=== PATIENT | female | born 1960 | race African-American/Black ===

== ENCOUNTER 2019-06-23 11:11 | Inpatient (IN) ==
[2019-06-23] MEDS ORDERED: PROVENTIL NEB TX 0.083% 2.5MG/ 3ML NEB SCH (13:00)
[2019-06-23] MEDS ORDERED: VENTOLIN or PROAIR HFA IN SCH (13:15)
[2019-06-23] MEDS ORDERED: NS 1/2 1000 ML IV 1,000 ML IV ONE (13:43)
[2019-06-23 13:46] LABS: ABG ALLEN TEST POS; ABG BASE EXCESS 3.2 mmol/L (-2.0-2.0); ABG HCO3 26.9 mmol/L (22-26)
[2019-06-23 13:59] LABS: BASOPHILS % (AUTO) 0.4 % (0.2-1.0); EOSINOPHILS % (AUTO) 0.1 % (0.9-2.9); LYMPHOCYTES % (AUTO) 33.4 % (21.0-51.0); MEAN CORPUSCULAR HEMOGLOBIN 28.2 pg (27.0-34.0); MEAN CORPUSCULAR HGB CONC 33.3 g/dL (33.0-35.0); MEAN CORPUSCULAR VOLUME 84.8 fL (80.0-100.0); MONOCYTES # (AUTO) 0.2 x10^3/uL (0.3-0.8); MONOCYTES % (AUTO) 5.9 % (0.0-13.0); NEUTROPHILS # (AUTO) 1.8 x10^3/uL (2.2-4.8); NEUTROPHILS % (AUTO) 60.2 % (42.0-75.0); PLATELET COUNT 147 X10^3/uL (150.0-450.0); RED BLOOD COUNT 4.96 X10^6/uL (3.5-5.4); RED CELL DISTRIBUTION WIDTH 13.6 % (11.6-16.5); WHITE BLOOD COUNT 2.9 X10^3/uL (3.6-10.0)
[2019-06-23 14:08] LABS: ALANINE AMINOTRANSFERASE 48 Units/L (12-78); ALBUMIN 3.5 g/dL (3.4-5.0); ALKALINE PHOSPHATASE 109 Units/L (46-116); ASPARTATE AMINO TRANSFERASE 39 Units/L (15-37); BLOOD UREA NITROGEN 10 mg/dL (7-18); CALCIUM 8.6 mg/dL (8.5-10.1); CARBON DIOXIDE 27.4 mmol/L (21-32); CHLORIDE 104 mmol/L (98-107); COR NA(FOR HYPERGLY) 141 mmol/L (136-145); CREATININE 0.84 mg/dL (0.55-1.02); SODIUM 140 mmol/L (136-145); TOTAL PROTEIN 8.1 g/dL (6.4-8.2); eGFR NON BLACK RACES > 60 (>60)
[2019-06-23] MEDS: NS 1/2 1000 ML IV 1,000 ML IV SCH (14:13)
[2019-06-23 14:26] VITALS: BMI 31.6
[2019-06-23] MEDS ORDERED: PREVNAR 13 IM ONE (14:26)
[2019-06-23] MEDS ORDERED: POTASSIUM CHLORIDE LIQ 20 MEQ UDC PO PRN (14:37)
[2019-06-23] MEDS ORDERED: MICRO K EXTEN CAP 10 MEQ PO PRN (14:37)
[2019-06-23] MEDS ORDERED: KLOR-CON PO PRN (14:37)
[2019-06-23] MEDS ORDERED: POTASSIUM CHL 40 MEQ/NS 0.45% 500 ML IV PRN (14:37)
[2019-06-23] MEDS ORDERED: K-RIDER 10 MEQ/NS 100 ML 10 MEQ/100 ML BAG IV PRN (14:37)
[2019-06-23] MEDS ORDERED: MAGNESIUM SULFATE 1 GRAM/100 mL PREMIX 1 GM/100 ML BAG IV PRN (14:37)
[2019-06-23] MEDS ORDERED: POTASSIUM CHL 60 MEQ/NS 0.45% 500 ML IV PRN (14:37)
[2019-06-23] MEDS ORDERED: K-DUR TAB 20 MEQ PO ONE (14:49)
[2019-06-23] MEDS: K-DUR TAB 20 MEQ PO PRN (14:51)
[2019-06-23] MEDS: ROBITUSSIN DM PO SCH ×3 (14:51→21:00)
[2019-06-23] MEDS: PLAQUENIL PO SCH ×2 (14:52→21:00)
[2019-06-23] MEDS: TUSSIONEX PENNKINETIC SUSP PO SCH (14:52)
[2019-06-23] MEDS: ZITHROMAX INJ 500 MG VIAL 500 MG in NS 250 ML IV 250 ML IV SCH (14:52)
--- NOTE | 2019-06-23 16:00 | RAD ---
CHEST, 1 VIEWHistory: SOB COUGHING FEVERComparison: 04/16/2017Findings: Cardiac silhouette is normal in size. No acute alveolar infiltrate or significant effusion is identified. No pneumothorax.Impression: No acute cardiopulmonary abnormality.Electronically signed by: KATLYN FONSECA (Jun 23, 2019 15:58:49)
[2019-06-23] MEDS: PEPCID TAB 20 MG PO SCH (21:00)
[2019-06-23 23:05] LABS: MYCOPLASMA PNEUMONIAE IGM AB NEGATIVE (NEGATIVE)
[2019-06-24] MEDS: TUSSIONEX PENNKINETIC SUSP PO SCH ×2 (02:20→13:59)
[2019-06-24] MEDS: PLAQUENIL PO SCH ×3 (05:40→22:06)
[2019-06-24 06:03] LABS: BASOPHILS % (AUTO) 0.3 % (0.2-1.0); EOSINOPHILS % (AUTO) 0.2 % (0.9-2.9); HEMATOCRIT 38.5 % (36.0-47.0); HEMOGLOBIN 12.6 g/dL (12.0-16.0); LYMPHOCYTES # (AUTO) 1.2 X10^3/uL (1.3-2.9); LYMPHOCYTES % (AUTO) 49.2 % (21.0-51.0); MEAN CORPUSCULAR HEMOGLOBIN 28.1 pg (27.0-34.0); MEAN CORPUSCULAR HGB CONC 32.7 g/dL (33.0-35.0); MEAN CORPUSCULAR VOLUME 85.8 fL (80.0-100.0); MEAN PLATELET VOLUME 7.6 fL (7.4-11.0); MONOCYTES # (AUTO) 0.3 x10^3/uL (0.3-0.8); MONOCYTES % (AUTO) 12.1 % (0.0-13.0); NEUTROPHILS # (AUTO) 0.9 x10^3/uL (2.2-4.8); NEUTROPHILS % (AUTO) 38.2 % (42.0-75.0); PLATELET COUNT 138 X10^3/uL (150.0-450.0); RED BLOOD COUNT 4.49 X10^6/uL (3.5-5.4); RED CELL DISTRIBUTION WIDTH 13.7 % (11.6-16.5); WHITE BLOOD COUNT 2.4 X10^3/uL (3.6-10.0)
[2019-06-24 06:15] LABS: ALANINE AMINOTRANSFERASE 42 Units/L (12-78); ALKALINE PHOSPHATASE 85 Units/L (46-116); ASPARTATE AMINO TRANSFERASE 36 Units/L (15-37); BLOOD UREA NITROGEN 9 mg/dL (7-18); CALCIUM 7.9 mg/dL (8.5-10.1); CARBON DIOXIDE 27.8 mmol/L (21-32); CHLORIDE 106 mmol/L (98-107); COR CA(FOR HYPOALB) 8.7 mg/dL (8.5-10.1); CREATININE 0.78 mg/dL (0.55-1.02); SODIUM 140 mmol/L (136-145); TOTAL PROTEIN 6.9 g/dL (6.4-8.2); eGFR NON BLACK RACES > 60 (>60)
[2019-06-24] MEDS ORDERED: NS 1/2 1000 ML IV 1,000 ML IV ONE ×2 (06:30→22:33)
[2019-06-24 06:33] LABS: PLATELET MORPHOLOGY COMMENT NORMAL (NORMAL)
[2019-06-24] MEDS: NS 1/2 1000 ML IV 1,000 ML IV SCH ×3 (06:34→23:43)
[2019-06-24] MEDS: ROBITUSSIN DM PO SCH ×4 (09:13→21:15)
[2019-06-24] MEDS: ZITHROMAX INJ 500 MG VIAL 500 MG in NS 250 ML IV 250 ML IV SCH (09:13)
[2019-06-24] MEDS: ELIQUIS PO SCH (09:13)
--- NOTE | 2019-06-24 09:51 | PCM.PROG ---
Progress Note Progress Note for Day of Date of Exam: 06/24/19 Subjective Subjective: Pt is a 59 yo f pmhx Pulmonary embolus, admitted for pneumonia(failed outpt treatment), malaise/fatigue, persistent fever. Due to current COVID-19 pandemic, pt was started on pneumonia protocol, w/ Plaquenil and Zithromax. Myco/Flu negative, BloodCx pending. Today Wbc 2.4, Plt 138, Hgb 12.6, CRP 30. CXR negative. She is feeling a little better today, still having some fatigue. She is on 2L nc, will start to wean down today. Past Medical Family Social History Past Med/Fam/Surg Hx: No changes since H&P Allergies: Allergies morphine Allergy (Intermediate, Verified 06/23/19 12:22) prednisone Adverse Reaction (Verified 06/23/19 12:22) Review of Systems ROS: No change since H&P Vital Signs and I&O's Vital Signs: Temperature 98.6 F Pulse Rate 51 Respiratory Rate 20 Blood Pressure 102/55 O2 Sat by Pulse Oximetry 100 Intake and Output: Intake & Output 06/21/19 06/22/19 06/23/19 06/24/19 23:59 23:59 23:59 23:59 Intake Total 1281 / 1281 570 / 570 Balance 1281 / 1281 570 / 570 Physical Exam Oriented: Normal Eyes: Normal Ear: Normal Nose: Normal Respiratory: Normal Cardiovascular: Normal : Normal Auscultation: Bowel Sounds: Normal Tenderness: Normal Skin: Normal Musculoskeletal: Normal Psychiatric: Normal Speech Pattern: Clear and Appropriate Laboratory and Diagnostics Result Diagrams: 06/24/19 05:01 06/24/19 05:01 Labs: Laboratory WBC 2.4 X10^3/uL (3.6-10.0) L 06/24/19 05:01 RBC 4.49 X10^6/uL (3.5-5.4) 06/24/19 05:01 Hgb 12.6 g/dL (12.0-16.0) 06/24/19 05:01 Hct 38.5 % (36.0-47.0) 06/24/19 05:01 MCV 85.8 fL (80.0-100.0) 06/24/19 05:01 MCH 28.1 pg (27.0-34.0) 06/24/19 05:01 MCHC 32.7 g/dL (33.0-35.0) L 06/24/19 05:01 RDW 13.7 % (11.6-16.5) 06/24/19 05:01 Plt Count 138 X10^3/uL (150.0-450.0) L 06/24/19 05:01 Plt Count Comment Adequate (ADEQUATE) 06/24/19 05:01 MPV 7.6 fL (7.4-11.0) 06/24/19 05:01 Neut % (Auto) 38.2 % (42.0-75.0) L 06/24/19 05:01 Lymph % (Auto) 49.2 % (21.0-51.0) 06/24/19 05:01 [place] % (Auto) 12.1 % (0.0-13.0) 06/24/19 05:01 Eos % (Auto) 0.2 % (0.9-2.9) L 06/24/19 05:01 Baso % (Auto) 0.3 % (0.2-1.0) 06/24/19 05:01 Neut # (Auto) 0.9 x10^3/uL (2.2-4.8) L 06/24/19 05:01 Lymph # (Auto) 1.2 X10^3/uL (1.3-2.9) L 06/24/19 05:01 [place] # (Auto) 0.3 x10^3/uL (0.3-0.8) 06/24/19 05:01 Eos # (Auto) 0.0 x10^3/uL (0.0-0.2) 06/24/19 05:01 Baso # (Auto) 0.0 X10^3/uL (0.0-0.1) 06/24/19 05:01 Absolute Nucleated RBC 0.0 /100WBC 06/24/19 05:01 Total Counted 100 06/24/19 05:01 Neutrophils % (Manual) 36 % (39-76) L 06/24/19 05:01 Lymphocytes % (Manual) 50 % (13-43) H 06/24/19 05:01 Monocytes % (Manual) 14 % (4-9) H 06/24/19 05:01 Plt Morphology Comment Normal (NORMAL) 06/24/19 05:01 RBC Morphology Normal (NORMAL) 06/24/19 05:01 Sample Site Lrad 06/23/19 13:37 ABG pH 7.470 (7.35-7.45) H 06/23/19 13:37 ABG pCO2 37.0 mmHg (35.0-45.0) 06/23/19 13:37 ABG pO2 80.0 mmHg (80.0-100.0) 06/23/19 13:37 ABG HCO3 26.9 mmol/L (22-26) H 06/23/19 13:37 ABG O2 Saturation 96.0 % (90-100) 06/23/19 13:37 ABG Base Excess 3.2 mmol/L (-2.0-2.0) H 06/23/19 13:37 Shayne Test Pos 06/23/19 13:37 A-a Gradient 23.0 mmHg 06/23/19 13:37 FiO2 21.0 06/23/19 13:37 Blood Gas Comments Pt johan well elj cdn 06/23/19 13:37 Sodium 140 mmol/L (136-145) 06/24/19 05:01 Corrected Sodium TNP 06/24/19 05:01 Potassium 3.9 mmol/L (3.5-5.1) 06/24/19 05:01 Chloride 106 mmol/L (98-107) 06/24/19 05:01 Carbon Dioxide 27.8 mmol/L (21-32) 06/24/19 05:01 BUN 9 mg/dL (7-18) 06/24/19 05:01 Creatinine 0.78 mg/dL (0.55-1.02) 06/24/19 05:01 Est GFR (MDRD) Af Amer > 60 (>60) 06/24/19 05:01 Est GFR (MDRD) Non-Af > 60 (>60) 06/24/19 05:01 Glucose 102 mg/dL (65-99) H 06/24/19 05:01 Calcium 7.9 mg/dL (8.5-10.1) L 06/24/19 05:01 Corrected Calcium 8.7 mg/dL (8.5-10.1) 06/24/19 05:01 Magnesium 1.9 mg/dL (1.7-2.9) 06/23/19 13:30 Total Bilirubin 0.50 mg/dL (0.2-1.0) 06/24/19 05:01 AST 36 Units/L (15-37) 06/24/19 05:01 ALT 42 Units/L (12-78) 06/24/19 05:01 Alkaline Phosphatase 85 Units/L (46-116) 06/24/19 05:01 C-Reactive Protein 30.60 mg/L (0-3.0) H 06/24/19 05:01 Total Protein 6.9 g/dL (6.4-8.2) 06/24/19 05:01 Albumin 3.0 g/dL (3.4-5.0) L 06/24/19 05:01 Globulin 3.9 g/dL (2.5-4.5) 06/24/19 05:01 Albumin/Globulin Ratio 0.8 Ratio (1.1-2.1) L 06/24/19 05:01 Influenza Type A (PCR) Negative (NEGATIVE) 06/23/19 23:30 Influenza Type B (PCR) Negative (NEGATIVE) 06/23/19 23:30 Mycoplasma pneumon IgG Negative (NEGATIVE) 06/23/19 17:56 Plan (1) Pneumonia: Status: Acute Plan: Pneumonia protocol (2) Fever: Status: Acute (3) Pulmonary embolus: Status: Acute Plan: Continue Eliquis (4) Cough: Status: Acute
[2019-06-24] MEDS: PEPCID TAB 20 MG PO SCH (21:15)
[2019-06-24] MEDS ORDERED: TYLENOL 325 MG TAB PO PRN (23:04)
[2019-06-25] MEDS: TUSSIONEX PENNKINETIC SUSP PO SCH ×2 (02:20→13:48)
[2019-06-25] MEDS: PLAQUENIL PO SCH ×3 (06:10→21:30)
[2019-06-25 06:31] LABS: BASOPHILS % (AUTO) 0.9 % (0.2-1.0); EOSINOPHILS % (AUTO) 0.3 % (0.9-2.9); HEMATOCRIT 36.4 % (36.0-47.0); HEMOGLOBIN 12.1 g/dL (12.0-16.0); LYMPHOCYTES # (AUTO) 1.4 X10^3/uL (1.3-2.9); LYMPHOCYTES % (AUTO) 48.9 % (21.0-51.0); MEAN CORPUSCULAR HEMOGLOBIN 28.5 pg (27.0-34.0); MEAN CORPUSCULAR HGB CONC 33.2 g/dL (33.0-35.0); MEAN CORPUSCULAR VOLUME 85.7 fL (80.0-100.0); MEAN PLATELET VOLUME 8.6 fL (7.4-11.0); MONOCYTES # (AUTO) 0.2 x10^3/uL (0.3-0.8); NEUTROPHILS # (AUTO) 1.2 x10^3/uL (2.2-4.8); NEUTROPHILS % (AUTO) 41.9 % (42.0-75.0); PLATELET COUNT 146 X10^3/uL (150.0-450.0); RED BLOOD COUNT 4.25 X10^6/uL (3.5-5.4); RED CELL DISTRIBUTION WIDTH 13.7 % (11.6-16.5); WHITE BLOOD COUNT 2.9 X10^3/uL (3.6-10.0)
[2019-06-25 06:45] LABS: ALANINE AMINOTRANSFERASE 42 Units/L (12-78); ALKALINE PHOSPHATASE 87 Units/L (46-116); ASPARTATE AMINO TRANSFERASE 30 Units/L (15-37); BLOOD UREA NITROGEN 9 mg/dL (7-18); CALCIUM 8.1 mg/dL (8.5-10.1); CARBON DIOXIDE 27.7 mmol/L (21-32); CHLORIDE 105 mmol/L (98-107); COR CA(FOR HYPOALB) 8.9 mg/dL (8.5-10.1); CREATININE 0.75 mg/dL (0.55-1.02); SODIUM 139 mmol/L (136-145); TOTAL PROTEIN 6.8 g/dL (6.4-8.2); eGFR NON BLACK RACES > 60 (>60)
[2019-06-25] MEDS: NS 1/2 1000 ML IV 1,000 ML IV SCH ×3 (06:55→18:02)
[2019-06-25] MEDS: ZITHROMAX INJ 500 MG VIAL 500 MG in NS 250 ML IV 250 ML IV SCH (08:17)
[2019-06-25] MEDS: ELIQUIS PO SCH ×2 (08:18→21:30)
[2019-06-25] MEDS: ROBITUSSIN DM PO SCH ×4 (08:19→21:30)
[2019-06-25] MEDS: K-DUR TAB 20 MEQ PO PRN (08:20)
[2019-06-25] MEDS ORDERED: BENADRYL CAP/TAB 25 MG PO PRN (09:53)
[2019-06-25] MEDS ORDERED: COLACE CAP 100 MG PO PRN (11:10)
--- NOTE | 2019-06-25 11:29 | PCM.PROG ---
Progress Note Progress Note for Day of Date of Exam: 06/25/19 Subjective Subjective: Pt is a 59 yo f pmhx Pulmonary embolus, admitted for pneumonia(failed outpt treatment), malaise/fatigue, persistent fever. Due to current COVID-19 pandemic, pt was started on pneumonia protocol, w/ Plaquenil and Zithromax. Myco/Flu negative, BloodCx NGTD. COVID-19 pending. She reports feeling the same, w/ fatigue, and had spiked a fever of 101F last night. Labs Wbc 2.9, Plt 146, Hgb 12.1. She is on 2L nc. Will add Colace for constipation. Continue to monitor and follow up labs in the morning. Past Medical Family Social History Past Med/Fam/Surg Hx: No changes since H&P Allergies: Allergies morphine Allergy (Intermediate, Verified 06/23/19 12:22) prednisone Adverse Reaction (Verified 06/23/19 12:22) Review of Systems ROS: No change since H&P Vital Signs and I&O's Vital Signs: Temperature 98.0 F Pulse Rate 59 Respiratory Rate 19 Blood Pressure 111/58 O2 Sat by Pulse Oximetry 98 Intake and Output: Intake & Output 06/22/19 06/23/19 06/24/19 06/25/19 23:59 23:59 23:59 23:59 Intake Total 1281 / 1281 1211 / 1211 606 / 606 Balance 1281 / 1281 1211 / 1211 606 / 606 Physical Exam Oriented: Normal Eyes: Normal Ear: Normal Nose: Normal Respiratory: Normal Cardiovascular: Normal : Normal Auscultation: Bowel Sounds: Normal Tenderness: Normal Skin: Normal Musculoskeletal: Normal Psychiatric: Normal Speech Pattern: Clear and Appropriate Laboratory and Diagnostics Result Diagrams: 06/25/19 05:10 06/25/19 05:10 Labs: 06/23/19 13:35 Blood Blood Culture - Final 06/23/19 13:30 Blood Blood Culture - Preliminary Laboratory WBC 2.9 X10^3/uL (3.6-10.0) L 06/25/19 05:10 RBC 4.25 X10^6/uL (3.5-5.4) 06/25/19 05:10 Hgb 12.1 g/dL (12.0-16.0) 06/25/19 05:10 Hct 36.4 % (36.0-47.0) 06/25/19 05:10 MCV 85.7 fL (80.0-100.0) 06/25/19 05:10 MCH 28.5 pg (27.0-34.0) 06/25/19 05:10 MCHC 33.2 g/dL (33.0-35.0) 06/25/19 05:10 RDW 13.7 % (11.6-16.5) 06/25/19 05:10 Plt Count 146 X10^3/uL (150.0-450.0) L 06/25/19 05:10 Plt Count Comment Adequate (ADEQUATE) 06/24/19 05:01 MPV 8.6 fL (7.4-11.0) 06/25/19 05:10 Neut % (Auto) 41.9 % (42.0-75.0) L 06/25/19 05:10 Lymph % (Auto) 48.9 % (21.0-51.0) 06/25/19 05:10 [place] % (Auto) 8.0 % (0.0-13.0) 06/25/19 05:10 Eos % (Auto) 0.3 % (0.9-2.9) L 06/25/19 05:10 Baso % (Auto) 0.9 % (0.2-1.0) 06/25/19 05:10 Neut # (Auto) 1.2 x10^3/uL (2.2-4.8) L 06/25/19 05:10 Lymph # (Auto) 1.4 X10^3/uL (1.3-2.9) 06/25/19 05:10 [place] # (Auto) 0.2 x10^3/uL (0.3-0.8) L 06/25/19 05:10 Eos # (Auto) 0.0 x10^3/uL (0.0-0.2) 06/25/19 05:10 Baso # (Auto) 0.0 X10^3/uL (0.0-0.1) 06/25/19 05:10 Absolute Nucleated RBC 0.1 /100WBC 06/25/19 05:10 Total Counted 100 06/24/19 05:01 Neutrophils % (Manual) 36 % (39-76) L 06/24/19 05:01 Lymphocytes % (Manual) 50 % (13-43) H 06/24/19 05:01 Monocytes % (Manual) 14 % (4-9) H 06/24/19 05:01 Plt Morphology Comment Normal (NORMAL) 06/24/19 05:01 RBC Morphology Normal (NORMAL) 06/24/19 05:01 Sample Site Lrad 06/23/19 13:37 ABG pH 7.470 (7.35-7.45) H 06/23/19 13:37 ABG pCO2 37.0 mmHg (35.0-45.0) 06/23/19 13:37 ABG pO2 80.0 mmHg (80.0-100.0) 06/23/19 13:37 ABG HCO3 26.9 mmol/L (22-26) H 06/23/19 13:37 ABG O2 Saturation 96.0 % (90-100) 06/23/19 13:37 ABG Base Excess 3.2 mmol/L (-2.0-2.0) H 06/23/19 13:37 Shayne Test Pos 06/23/19 13:37 A-a Gradient 23.0 mmHg 06/23/19 13:37 FiO2 21.0 06/23/19 13:37 Blood Gas Comments Pt johan well elj cdn 06/23/19 13:37 Sodium 139 mmol/L (136-145) 06/25/19 05:10 Corrected Sodium TNP 06/25/19 05:10 Potassium 3.6 mmol/L (3.5-5.1) 06/25/19 05:10 Chloride 105 mmol/L (98-107) 06/25/19 05:10 Carbon Dioxide 27.7 mmol/L (21-32) 06/25/19 05:10 BUN 9 mg/dL (7-18) 06/25/19 05:10 Creatinine 0.75 mg/dL (0.55-1.02) 06/25/19 05:10 Est GFR (MDRD) Af Amer > 60 (>60) 06/25/19 05:10 Est GFR (MDRD) Non-Af > 60 (>60) 06/25/19 05:10 Glucose 104 mg/dL (65-99) H 06/25/19 05:10 Calcium 8.1 mg/dL (8.5-10.1) L 06/25/19 05:10 Corrected Calcium 8.9 mg/dL (8.5-10.1) 06/25/19 05:10 Magnesium 2.1 mg/dL (1.7-2.9) 06/25/19 05:10 Total Bilirubin 0.60 mg/dL (0.2-1.0) 06/25/19 05:10 AST 30 Units/L (15-37) 06/25/19 05:10 ALT 42 Units/L (12-78) 06/25/19 05:10 Alkaline Phosphatase 87 Units/L (46-116) 06/25/19 05:10 C-Reactive Protein 30.60 mg/L (0-3.0) H 06/24/19 05:01 Total Protein 6.8 g/dL (6.4-8.2) 06/25/19 05:10 Albumin 3.0 g/dL (3.4-5.0) L 06/25/19 05:10 Globulin 3.8 g/dL (2.5-4.5) 06/25/19 05:10 Albumin/Globulin Ratio 0.8 Ratio (1.1-2.1) L 06/25/19 05:10 Influenza Type A (PCR) Negative (NEGATIVE) 06/23/19 23:30 Influenza Type B (PCR) Negative (NEGATIVE) 06/23/19 23:30 Mycoplasma pneumon IgG Negative (NEGATIVE) 06/23/19 17:56 Plan (1) Pneumonia: Status: Acute Plan: Pneumonia protocol On 2L nc (2) Fever: Status: Acute Plan: Spiked 101F yesterday (3) Pulmonary embolus: Status: Acute Plan: Continue Eliquis (4) Cough: Status: Acute
[2019-06-25] MEDS ORDERED: NS 1/2 1000 ML IV 1,000 ML IV ONE (13:21)
[2019-06-25] MEDS: COLACE CAP 100 MG PO SCH ×2 (13:48→20:30)
[2019-06-25] MEDS: PEPCID TAB 20 MG PO SCH (21:30)
[2019-06-26] MEDS ORDERED: NS 1/2 1000 ML IV 1,000 ML IV ONE ×2 (02:46→19:59)
[2019-06-26 06:09] LABS: BASOPHILS % (AUTO) 0.4 % (0.2-1.0); EOSINOPHILS % (AUTO) 0.8 % (0.9-2.9); HEMATOCRIT 37.1 % (36.0-47.0); HEMOGLOBIN 12.5 g/dL (12.0-16.0); LYMPHOCYTES # (AUTO) 1.3 X10^3/uL (1.3-2.9); LYMPHOCYTES % (AUTO) 45.2 % (21.0-51.0); MEAN CORPUSCULAR HEMOGLOBIN 28.9 pg (27.0-34.0); MEAN CORPUSCULAR HGB CONC 33.6 g/dL (33.0-35.0); MEAN PLATELET VOLUME 8.3 fL (7.4-11.0); MONOCYTES # (AUTO) 0.3 x10^3/uL (0.3-0.8); NEUTROPHILS # (AUTO) 1.2 x10^3/uL (2.2-4.8); NEUTROPHILS % (AUTO) 42.6 % (42.0-75.0); PLATELET COUNT 145 X10^3/uL (150.0-450.0); RED BLOOD COUNT 4.31 X10^6/uL (3.5-5.4); RED CELL DISTRIBUTION WIDTH 13.3 % (11.6-16.5); WHITE BLOOD COUNT 2.8 X10^3/uL (3.6-10.0)
[2019-06-26 06:21] LABS: ALANINE AMINOTRANSFERASE 36 Units/L (12-78); ALKALINE PHOSPHATASE 88 Units/L (46-116); ASPARTATE AMINO TRANSFERASE 29 Units/L (15-37); BLOOD UREA NITROGEN 10 mg/dL (7-18); CALCIUM 8.3 mg/dL (8.5-10.1); CARBON DIOXIDE 26.1 mmol/L (21-32); CHLORIDE 105 mmol/L (98-107); COR CA(FOR HYPOALB) 9.1 mg/dL (8.5-10.1); CREATININE 0.75 mg/dL (0.55-1.02); SODIUM 139 mmol/L (136-145); eGFR NON BLACK RACES > 60 (>60)
[2019-06-26] MEDS: TUSSIONEX PENNKINETIC SUSP PO SCH ×2 (06:26→14:38)
[2019-06-26] MEDS: PLAQUENIL PO SCH ×3 (06:26→21:10)
[2019-06-26] MEDS: NS 1/2 1000 ML IV 1,000 ML IV SCH ×3 (06:27→23:24)
[2019-06-26 06:34] LABS: PLATELET MORPHOLOGY COMMENT NORMAL (NORMAL)
--- NOTE | 2019-06-26 07:31 | RAD ---
HISTORYCough, shortness of breathSTUDYCHEST, 1 [id number] NGSThe heart is mildly enlarged. No congestive heart failure is noted. No acute alveolar infiltrates or pleural effusions are identified. Bony thorax is unremarkable.IMPRESSIONMinimal cardiomegaly without congestive heart failureNo definite infiltratesElectronically signed by: KELLY PEOPLES (Jun 26, 2019 07:30:41)
--- NOTE | 2019-06-26 09:42 | PCM.PROG ---
Progress Note - Progress Note for Day of Date of Exam: 06/26/19 - Subjective Subjective: Pt is a 59 yo f pmhx Pulmonary embolus, admitted for pneumonia(failed outpt treatment), malaise/fatigue, persistent fever. Due to current COVID-19 pandemic, pt was started on pneumonia protocol, w/ Plaquenil and Zithromax. Myco/Flu negative, BloodCx NGTD. COVID-19 POSITIVE. Infection was present on admission. Today, she is alert and oriented, lying in bed on morning rounds. She reports feeling the same, w/ fatigue, and mild shortness of breath. Temperature reached 100.4 throughout the night. On examination, heart is regular in rate and rhythm. Bilateral lungs are noted with diminished lung sounds throughout. Abdomen is round, soft, and non-tender with normal bowel sounds noted in all quadrants. Her vitals this morning are: 98.5-85-18-94%-112/62. Labs were obtained. Abnormal lab values include the following: WBC 2.8, PLT COUNT 145, CALCIUM 8.3, ALBUMIN 3.0. Blood cultures are pending. A chest xray was obtained and revealed: Minimal cardiomegaly without congestive heart failure. No definite infiltrates. She is currently receiving azithromycin 250mg iv daily, plaquenil 200mg pot id, the potassium and magnesium protocols, and home medications were resumed. We will continue with current plan of care today. Otherwise, we will follow up with AM labs and continue to monitor. - Past Medical Family Social History Past Med/Fam/Surg Hx: No changes since H&P Allergies: Allergies morphine Allergy (Intermediate, Verified 06/23/19 12:22) prednisone Adverse Reaction (Verified 06/23/19 12:22) - Review of Systems ROS: No change since H&P - Vital Signs and I&O's Vital Signs: Temperature 98.5 F Pulse Rate 85 Respiratory Rate 18 Blood Pressure 112/62 O2 Sat by Pulse Oximetry 94 Intake and Output: Intake & Output 06/23/19 06/24/19 06/25/19 06/26/19 11:59 11:59 11:59 11:59 Intake Total 1851 / 1851 1247 / 1247 3205 / 3205 Output Total 1753 / 1753 Balance 1851 / 1851 1247 / 1247 1452 / 1452 - Physical Exam Oriented: Normal Eyes: Normal Ear: Normal Nose: Normal Throat: Normal Respiratory: Generalized, Diminished Cardiovascular: Normal : Normal Auscultation: Bowel Sounds: Normal Palpation: Normal Tenderness: Normal Skin: Normal Musculoskeletal: Normal Psychiatric: Normal Speech Pattern: Clear, Appropriate - Laboratory and Diagnostics Result Diagrams: 06/26/19 05:06 06/26/19 05:06 Labs: 06/23/19 13:35 Blood Blood Culture - Final 06/23/19 13:30 Blood Blood Culture - Preliminary Laboratory WBC 2.8 X10^3/uL (3.6-10.0) L 06/26/19 05:06 RBC 4.31 X10^6/uL (3.5-5.4) 06/26/19 05:06 Hgb 12.5 g/dL (12.0-16.0) 06/26/19 05:06 Hct 37.1 % (36.0-47.0) 06/26/19 05:06 MCV 86.0 fL (80.0-100.0) 06/26/19 05:06 MCH 28.9 pg (27.0-34.0) 06/26/19 05:06 MCHC 33.6 g/dL (33.0-35.0) 06/26/19 05:06 RDW 13.3 % (11.6-16.5) 06/26/19 05:06 Plt Count 145 X10^3/uL (150.0-450.0) L 06/26/19 05:06 Plt Count Comment Adequate (ADEQUATE) 06/26/19 05:06 MPV 8.3 fL (7.4-11.0) 06/26/19 05:06 Neut % (Auto) 42.6 % (42.0-75.0) 06/26/19 05:06 Lymph % (Auto) 45.2 % (21.0-51.0) 06/26/19 05:06 [place] % (Auto) 11.0 % (0.0-13.0) 06/26/19 05:06 Eos % (Auto) 0.8 % (0.9-2.9) L 06/26/19 05:06 Baso % (Auto) 0.4 % (0.2-1.0) 06/26/19 05:06 Neut # (Auto) 1.2 x10^3/uL (2.2-4.8) L 06/26/19 05:06 Lymph # (Auto) 1.3 X10^3/uL (1.3-2.9) 06/26/19 05:06 [place] # (Auto) 0.3 x10^3/uL (0.3-0.8) 06/26/19 05:06 Eos # (Auto) 0.0 x10^3/uL (0.0-0.2) 06/26/19 05:06 Baso # (Auto) 0.0 X10^3/uL (0.0-0.1) 06/26/19 05:06 Absolute Nucleated RBC 0.2 /100WBC 06/26/19 05:06 Total Counted 100 06/24/19 05:01 Neutrophils % (Manual) 36 % (39-76) L 06/24/19 05:01 Lymphocytes % (Manual) 50 % (13-43) H 06/24/19 05:01 Monocytes % (Manual) 14 % (4-9) H 06/24/19 05:01 Plt Morphology Comment Normal (NORMAL) 06/26/19 05:06 RBC Morphology Normal (NORMAL) 06/26/19 05:06 Sample Site Lrad 06/23/19 13:37 ABG pH 7.470 (7.35-7.45) H 06/23/19 13:37 ABG pCO2 37.0 mmHg (35.0-45.0) 06/23/19 13:37 ABG pO2 80.0 mmHg (80.0-100.0) 06/23/19 13:37 ABG HCO3 26.9 mmol/L (22-26) H 06/23/19 13:37 ABG O2 Saturation 96.0 % (90-100) 06/23/19 13:37 ABG Base Excess 3.2 mmol/L (-2.0-2.0) H 06/23/19 13:37 Shayne Test Pos 06/23/19 13:37 A-a Gradient 23.0 mmHg 06/23/19 13:37 FiO2 21.0 06/23/19 13:37 Blood Gas Comments Pt johan well elj cdn 06/23/19 13:37 Sodium 139 mmol/L (136-145) 06/26/19 05:06 Corrected Sodium TNP 06/26/19 05:06 Potassium 3.7 mmol/L (3.5-5.1) 06/26/19 05:06 Chloride 105 mmol/L (98-107) 06/26/19 05:06 Carbon Dioxide 26.1 mmol/L (21-32) 06/26/19 05:06 BUN 10 mg/dL (7-18) 06/26/19 05:06 Creatinine 0.75 mg/dL (0.55-1.02) 06/26/19 05:06 Est GFR (MDRD) Af Amer > 60 (>60) 06/26/19 05:06 Est GFR (MDRD) Non-Af > 60 (>60) 06/26/19 05:06 Glucose 96 mg/dL (65-99) 06/26/19 05:06 Calcium 8.3 mg/dL (8.5-10.1) L 06/26/19 05:06 Corrected Calcium 9.1 mg/dL (8.5-10.1) 06/26/19 05:06 Magnesium 2.1 mg/dL (1.7-2.9) 06/25/19 05:10 Total Bilirubin 0.60 mg/dL (0.2-1.0) 06/26/19 05:06 AST 29 Units/L (15-37) 06/26/19 05:06 ALT 36 Units/L (12-78) 06/26/19 05:06 Alkaline Phosphatase 88 Units/L (46-116) 06/26/19 05:06 C-Reactive Protein 30.60 mg/L (0-3.0) H 06/24/19 05:01 Total Protein 7.0 g/dL (6.4-8.2) 06/26/19 05:06 Albumin 3.0 g/dL (3.4-5.0) L 06/26/19 05:06 Globulin 4.0 g/dL (2.5-4.5) 06/26/19 05:06 Albumin/Globulin Ratio 0.8 Ratio (1.1-2.1) L 06/26/19 05:06 Influenza Type A (PCR) Negative (NEGATIVE) 06/23/19 23:30 Influenza Type B (PCR) Negative (NEGATIVE) 06/23/19 23:30 Mycoplasma pneumon IgG Negative (NEGATIVE) 06/23/19 17:56 - Plan (1) COVID-19 virus infection Status: Acute Plan: azithromycin 250mg iv daily, plaquenil 200mg pot tid, continue to monitor (2) Pneumonia Status: Acute Qualifiers: Pneumonia type: due to unspecified organism Laterality: unspecified laterality Plan: Pneumonia protocol. On 2L nc (3) Fever Status: Acute Qualifiers: Fever type: unspecified Qualified Code(s): R50.9 - Fever, unspecified Plan: tylenol, antibiotics, continue to monitor (4) Pulmonary embolus Status: Chronic Qualifiers: Pulmonary embolism type: single subsegmental (without acute cor pulmonale) Qualified Code(s): I26.93 - Single subsegmental pulmonary embolism without acute cor pulmonale Plan: Continue Eliquis
[2019-06-26] MEDS: COLACE CAP 100 MG PO SCH ×2 (09:50→20:27)
[2019-06-26] MEDS: ELIQUIS PO SCH ×2 (09:51→20:28)
[2019-06-26] MEDS: ROBITUSSIN DM PO SCH ×4 (09:51→20:29)
[2019-06-26] MEDS: ZITHROMAX INJ 500 MG VIAL 500 MG in NS 250 ML IV 250 ML IV SCH (09:51)
[2019-06-26] MEDS: K-DUR TAB 20 MEQ PO PRN (17:35)
[2019-06-26] MEDS: PEPCID TAB 20 MG PO SCH (20:29)
[2019-06-27] MEDS: TUSSIONEX PENNKINETIC SUSP PO SCH (01:05)
[2019-06-27] MEDS: PLAQUENIL PO SCH (05:35)
[2019-06-27 06:02] LABS: BASOPHILS % (AUTO) 0.5 % (0.2-1.0); EOSINOPHILS % (AUTO) 1.5 % (0.9-2.9); HEMOGLOBIN 13.2 g/dL (12.0-16.0); LYMPHOCYTES # (AUTO) 1.4 X10^3/uL (1.3-2.9); LYMPHOCYTES % (AUTO) 52.9 % (21.0-51.0); MEAN CORPUSCULAR HEMOGLOBIN 28.5 pg (27.0-34.0); MEAN CORPUSCULAR VOLUME 86.2 fL (80.0-100.0); MEAN PLATELET VOLUME 7.8 fL (7.4-11.0); MONOCYTES # (AUTO) 0.3 x10^3/uL (0.3-0.8); MONOCYTES % (AUTO) 10.4 % (0.0-13.0); NEUTROPHILS # (AUTO) 0.9 x10^3/uL (2.2-4.8); NEUTROPHILS % (AUTO) 34.7 % (42.0-75.0); PLATELET COUNT 184 X10^3/uL (150.0-450.0); RED BLOOD COUNT 4.64 X10^6/uL (3.5-5.4); RED CELL DISTRIBUTION WIDTH 13.8 % (11.6-16.5); WHITE BLOOD COUNT 2.7 X10^3/uL (3.6-10.0)
[2019-06-27 06:19] LABS: ALANINE AMINOTRANSFERASE 41 Units/L (12-78); ALBUMIN 3.2 g/dL (3.4-5.0); ALKALINE PHOSPHATASE 103 Units/L (46-116); ASPARTATE AMINO TRANSFERASE 32 Units/L (15-37); BLOOD UREA NITROGEN 10 mg/dL (7-18); CALCIUM 8.6 mg/dL (8.5-10.1); CHLORIDE 104 mmol/L (98-107); COR CA(FOR HYPOALB) 9.2 mg/dL (8.5-10.1); CREATININE 0.88 mg/dL (0.55-1.02); SODIUM 139 mmol/L (136-145); TOTAL PROTEIN 7.7 g/dL (6.4-8.2); eGFR NON BLACK RACES > 60 (>60)
[2019-06-27 06:25] LABS: PLATELET MORPHOLOGY COMMENT NORMAL (NORMAL)
--- NOTE | 2019-06-27 07:38 | RAD ---
HISTORYSOBSTUDYCHEST, 1 VIEWCOMPARISONChest film June 26, 2019.FINDINGSThe trachea is midline. The cardiac silhouette is unremarkable . The lungs are clear without focal infiltrate or effusion. The bony thorax is unremarkable. When compared to the last film June 26, 2019 there is no significant interval change.IMPRESSIONNo acute cardiopulmonary disease.Electronically signed by: HAILEY MENDOZA (Jun 27, 2019 07:37:12)
[2019-06-27] MEDS: NS 1/2 1000 ML IV 1,000 ML IV SCH (08:00)
[2019-06-27] MEDS: COLACE CAP 100 MG PO SCH (08:00)
[2019-06-27] MEDS: ELIQUIS PO SCH (08:01)
[2019-06-27] MEDS: ROBITUSSIN DM PO SCH (08:01)
[2019-06-27] MEDS: ZITHROMAX INJ 500 MG VIAL 500 MG in NS 250 ML IV 250 ML IV SCH (08:01)
[2019-06-27 08:21] VITALS: BP 120/63
== END 2019-06-27 09:50 | disposition home or self-care (01) | DRG 177 ==
LOC: ICU 12:57
PROVIDERS: ADMIT Internal Medicine; ATTEND Internal Medicine
CPT/HCPCS: 36415; 36600; 71010; 71045; 80053; 82803; 83735; 84132; 85025; 86140; 86738; 87040; 87502; 93005; A4222; J0456; J3475; J3490; J7050